=== PATIENT | male | born 1970 | race Caucasian/White ===

== ENCOUNTER 2019-01-13 11:38 | Day surgery (SDC) | payer MEDICARE, OTHER ==
[2019-01-13] MEDS ORDERED: Xylocaine 1% Vial 30 ML PF IJ ONE (11:39)
[2019-01-13] MEDS ORDERED: Sodium Chloride 0.9(Preservative Free) 10 ML IJ ONE (11:39)
[2019-01-13] MEDS ORDERED: Depo-Medrol 40 MG/ML IM ONE (11:39)
--- NOTE | 2019-01-13 13:42 | XRAY ---
40 seconds fluoroscopy time in surgery for left L4-S1 MICHEL.
--- NOTE | 2019-01-13 13:49 | XRAY ---
Indication: Left L4-S1 MICHEL. Intraoperative fluoroscopy was provided for 40 seconds. 6 digital spot images submitted for interpretation demonstrates posterior needle tips projecting over the expected course of the left L4-L5 nerve roots. Small amount of contrast injected for needle tip placement. Correlate with intraoperative findings/report.
== END 2019-01-13 13:18 | disposition home or self-care (01) ==
LOC: SDC-PAIN 11:38
PROVIDERS: ATTEND Psychiatry & Neurology Pain Medicine
DX: M54.16 Radiculopathy, lumbar region (principal); I10 Essential (primary) hypertension; G47.30 Sleep apnea, unspecified; E66.9 Obesity, unspecified; F32.9 Major depressive disorder, single episode, unspecified
CPT/HCPCS: 64483; 64484; 72020; 77003; J1030; J2001; Q9966